=== PATIENT | female | born 1985 | race African-American/Black ===

== ENCOUNTER 2018-02-24 10:00 | Emergency (ER) | payer SELFPAY ==
[~2018-02-24] VITALS: Ht 154.9 cm; Wt 74.0 kg
[2018-02-24] MEDS ORDERED: DIPHENHYDRAMINE 50MG/ML VIAL IV ONE (14:30)
[2018-02-24] MEDS ORDERED: SODIUM CHLORIDE 0.9% 1,000 ML IV ONE (14:30)
[2018-02-24] MEDS ORDERED: METOCLOPRAMIDE HCL 10MG/2ML VIAL IV ONE (14:30)
[2018-02-24] MEDS ORDERED: KETOROLAC 30MG/ML VIAL IV ONE (14:30)
[2018-02-24 17:45] VITALS: BP 112/66
== END 2018-02-24 18:07 | disposition home or self-care (01) ==
LOC: ER 11:18
DX: G43.909 Migraine, unspecified, not intractable, without status migrainosus (principal)
CPT/HCPCS: 70450; 81025; 96374; 96375; 99284; J1200; J1885; J2765; J7030; Z7610